=== PATIENT | female | born 1980 | race Caucasian/White ===

== ENCOUNTER 2019-10-30 14:33 | Outpatient (CLI) | payer OTHER, SELFPAY ==
[2019-10-30 14:48] LABS: Basophils Absolute Auto 0.1 K/mm3 (0.0-0.1); Basophils Percent Auto 0.7 % (0.2-1.2); Eosinophils Absolute Auto 0.3 K/mm3 (0-0.3); Eosinophils Percent Auto 3.4 % (0-4.4); Hematocrit 39.5 % (37.0-47.0); Hemoglobin 13.1 g/dL (12.0-15.0); Immature Granulocyte Absolute 0.02 K/mm3 (0.00-0.031); Immature Granulocyte Percent A 0.3 % (0-0.5); Lymphocytes Absolute Auto 2.14 K/mm3 (0.9-3.2); Lymphocytes Percent Auto 28.9 % (18.3-44.2); Mean Corpuscular HGB Conc 33.2 g/dl (32-36); Mean Corpuscular Hemoglobin 31.9 pg (26-34); Mean Corpuscular Volume 96.1 fl (80-100); Monocytes Absolute Auto 0.9 K/mm3 (0.1-0.6); Monocytes Percent Auto 12.7 % (2.6-8.5); Platelet Count Result 360 k/mm3 (150-375); Red Blood Count 4.11 M/mm3 (4.2-5.4); Red Cell Distribution Width 12.1 % (11.5-14.5); White Blood Count 7.4 K/mm3 (4.5-10.0)
[2019-10-30 14:53] LABS: Blood Urea Nitrogen 7 mg/dL (8-26); Carbon Dioxide 26 mmol/L (22-30); Chloride 103 mmol/L (98-109); Estimated Glomerular Filt Rate > 60; Glucose 81 mg/dL (70-105); Sodium 142 mmol/L (138-146)
[2019-10-30 17:25] LABS: Alanine Aminotransferase 36 U/L (4-35); Albumin Level 4.2 g/dL (3.5-5.1); Alkaline Phosphatase 59 U/L (38-126); Aspartate Amino Transferase 34 U/L (14-36); Bilirubin,Total 0.4 mg/dL (0.2-1.3); Blood Urea Nitrogen 8 mg/dL (7-17); Calcium 9.3 mg/dL (8.4-10.2); Carbon Dioxide 26 mmol/L (22-30); Chloride 105 mmol/L (98-107); Estimated Glomerular Filt Rate > 60; Glucose 87 mg/dL (65-105); Potassium 4.3 mmol/L (3.4-5.0); Sodium 138 mmol/L (137-145)
== END 2019-10-30 14:34 | disposition home or self-care (01) ==
PROVIDERS: Visit Provider Internal Medicine Hematology & Oncology
DX: Z86.718 Personal history of other venous thrombosis and embolism (principal)
CPT/HCPCS: 36415; 80048; 80053; 85025

== ENCOUNTER 2020-05-02 14:10 | Outpatient (CLI) | payer OTHER, SELFPAY ==
[2020-05-02 14:27] LABS: Basophils Absolute Auto 0.1 K/mm3 (0.0-0.1); Basophils Percent Auto 0.7 % (0.2-1.2); Eosinophils Absolute Auto 0.2 K/mm3 (0-0.3); Eosinophils Percent Auto 3.2 % (0-4.4); Hematocrit 39.1 % (37.0-47.0); Immature Granulocyte Absolute 0.01 K/mm3 (0.00-0.031); Immature Granulocyte Percent A 0.1 % (0-0.5); Lymphocytes Percent Auto 33.9 % (18.3-44.2); Mean Corpuscular HGB Conc 33.2 g/dl (32-36); Mean Corpuscular Hemoglobin 32.1 pg (26-34); Mean Corpuscular Volume 96.5 fl (80-100); Mean Platelet Volume 8.9 fl (7.4-10.4); Monocytes Absolute Auto 0.8 K/mm3 (0.1-0.6); Monocytes Percent Auto 11.6 % (2.6-8.5); Neutrophils Absolute Auto 3.6 K/mm3 (1.3-6.7); Neutrophils Percent Auto 50.5 % (45.5-73.1); Platelet Count Result 406 k/mm3 (150-375); Red Blood Count 4.05 M/mm3 (4.2-5.4); Red Cell Distribution Width 12.1 % (11.5-14.5); White Blood Count 7.1 K/mm3 (4.5-10.0)
[2020-05-02 14:30] LABS: Blood Urea Nitrogen 8 mg/dL (8-26); Carbon Dioxide 28 mmol/L (22-30); Chloride 104 mmol/L (98-109); Estimated Glomerular Filt Rate > 60; Glucose 102 mg/dL (70-105); Potassium 3.9 mmol/L (3.5-4.9); Sodium 142 mmol/L (138-146)
[2020-05-02 16:38] LABS: Alanine Aminotransferase 30 U/L (4-35); Alkaline Phosphatase 53 U/L (38-126); Anion Gap 6 mmol/L (8-16); Aspartate Amino Transferase 29 U/L (14-36); Bilirubin,Total 0.3 mg/dL (0.2-1.3); Blood Urea Nitrogen 9 mg/dL (7-17); Calcium 9.1 mg/dL (8.4-10.2); Carbon Dioxide 27 mmol/L (22-30); Chloride 107 mmol/L (98-107); Estimated Glomerular Filt Rate > 60; Glucose 101 mg/dL (65-105); Potassium 4.3 mmol/L (3.4-5.0); Sodium 140 mmol/L (137-145)
== END 2020-05-02 14:11 | disposition home or self-care (01) ==
PROVIDERS: Visit Provider Internal Medicine Hematology & Oncology
DX: Z86.718 Personal history of other venous thrombosis and embolism (principal)
CPT/HCPCS: 36415; 80048; 80053; 85025

== ENCOUNTER 2021-04-29 09:41 | Outpatient (CLI) | payer BC, SELFPAY ==
[2021-04-29 09:59] LABS: Basophils Percent Auto 0.6 % (0.2-1.2); Eosinophils Absolute Auto 0.3 K/mm3 (0-0.3); Eosinophils Percent Auto 3.6 % (0-4.4); Hematocrit 43.9 % (37.0-47.0); Hemoglobin 14.2 g/dL (12.0-15.0); Immature Granulocyte Absolute 0.02 K/mm3 (0.00-0.031); Immature Granulocyte Percent A 0.3 % (0-0.5); Lymphocytes Absolute Auto 2.16 K/mm3 (0.9-3.2); Lymphocytes Percent Auto 29.8 % (18.3-44.2); Mean Corpuscular HGB Conc 32.3 g/dl (32-36); Mean Corpuscular Hemoglobin 32.3 pg (26-34); Mean Corpuscular Volume 99.8 fl (80-100); Mean Platelet Volume 8.9 fl (7.4-10.4); Monocytes Absolute Auto 0.8 K/mm3 (0.1-0.6); Monocytes Percent Auto 10.8 % (2.6-8.5); Neutrophils Percent Auto 54.9 % (45.5-73.1); Platelet Count Result 386 k/mm3 (150-375); Red Cell Distribution Width 12.4 % (11.5-14.5); White Blood Count 7.2 K/mm3 (4.5-10.0)
[2021-04-29 10:03] LABS: Blood Urea Nitrogen 9 mg/dL (8-26); Carbon Dioxide 27 mmol/L (22-30); Chloride 102 mmol/L (98-109); Estimated Glomerular Filt Rate > 60; Glucose 76 mg/dL (70-105); Potassium 4.2 mmol/L (3.5-4.9); Sodium 141 mmol/L (138-146)
[2021-04-29 11:56] LABS: Alanine Aminotransferase 63 U/L (4-35); Albumin Level 4.4 g/dL (3.5-5.1); Alkaline Phosphatase 77 U/L (38-126); Anion Gap 10 mmol/L (8-16); Aspartate Amino Transferase 61 U/L (14-36); Bilirubin,Total 0.6 mg/dL (0.2-1.3); Blood Urea Nitrogen 9 mg/dL (7-17); Calcium 9.4 mg/dL (8.4-10.2); Carbon Dioxide 26 mmol/L (22-30); Chloride 103 mmol/L (98-107); Estimated Glomerular Filt Rate > 60; Glucose 78 mg/dL (65-110); Potassium 4.2 mmol/L (3.4-5.0); Sodium 139 mmol/L (137-145)
== END 2021-04-29 09:42 | disposition home or self-care (01) ==
PROVIDERS: Visit Provider Internal Medicine Hematology & Oncology
DX: Z86.718 Personal history of other venous thrombosis and embolism (principal)
CPT/HCPCS: 36415; 80053; 85025

== ENCOUNTER 2021-09-05 16:00 | Emergency (ER) | payer BC, SELFPAY ==
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
[2021-09-05 16:10] VITALS: BP 138/95; PULSE 67; RESP 16; TEMP 36.4; O2SAT 100
== END 2021-09-05 16:45 | disposition short-term general hospital (02) ==
LOC: EXPTROY 16:03
PROVIDERS: Emergency Provider Registered Nurse
DX: R10.31 Right lower quadrant pain (principal); K50.90 Crohn's disease, unspecified, without complications; M19.90 Unspecified osteoarthritis, unspecified site; D68.51 Activated protein C resistance
CPT/HCPCS: 99212; G0463

== ENCOUNTER 2021-09-05 16:58 | Emergency (ER) | payer BC, SELFPAY ==
--- NOTE | ~2021-09-05 | CT_ITS ---
EXAMINATION: CT abdomen pelvis w con DATE: 09/05/2021 20:48 INDICATION: Right lower quadrant abdominal pain. TECHNIQUE: Computed tomography (CT) of the abdomen and pelvis was performed with 75 mL Omnipaque 300 intravenous contrast. Automated exposure control and iterative reconstruction technique were employed . The dose-length product was 420.95 mGy-cm. COMPARISON: None. FINDINGS: The visualized portions of the lung bases demonstrate mild atelectasis. No pleural effusion . The heart size is normal. No pericardial effusion. The liver, gallbladder, pancreas, adrenal glands , and kidneys are normal. The spleen is small, likely from old injury. There are changes of right hem icolectomy. There are no dilated loops of bowel. There are no pathologically enlarged lymph nodes. Th ere is no free intraperitoneal fluid. There is internal fixation of left femur. IMPRESSION: 1. No etiology for the patient's symptoms. Reviewed, dictated and finalized at location A.
[2021-09-05 17:00] VITALS: BP 160/102; PULSE 63; RESP 20; TEMP 36.5; O2SAT 100
[2021-09-05 17:22] LABS: Basophils Absolute Auto 0.1 K/mm3 (0.0-0.1); Basophils Percent Auto 0.6 % (0.2-1.2); Eosinophils Absolute Auto 0.2 K/mm3 (0-0.3); Eosinophils Percent Auto 2.8 % (0-4.4); Hematocrit 43.3 % (37.0-47.0); Hemoglobin 14.2 g/dL (12.0-15.0); Immature Granulocyte Absolute 0.01 K/mm3 (0.00-0.031); Immature Granulocyte Percent A 0.1 % (0-0.5); Lymphocytes Absolute Auto 2.39 K/mm3 (0.9-3.2); Lymphocytes Percent Auto 28.8 % (18.3-44.2); Mean Corpuscular HGB Conc 32.8 g/dl (32-36); Mean Corpuscular Hemoglobin 32.2 pg (26-34); Mean Corpuscular Volume 98.2 fl (80-100); Mean Platelet Volume 9.2 fl (7.4-10.4); Monocytes Percent Auto 12.3 % (2.6-8.5); Neutrophils Absolute Auto 4.6 K/mm3 (1.3-6.7); Neutrophils Percent Auto 55.4 % (45.5-73.1); Platelet Count Result 412 k/mm3 (150-375); Red Blood Count 4.41 M/mm3 (4.2-5.4); Red Cell Distribution Width 12.3 % (11.5-14.5); White Blood Count 8.3 K/mm3 (4.5-10.0)
[2021-09-05 17:28] LABS: Alanine Aminotransferase 39 U/L (6-35); Alkaline Phosphatase 75 U/L (38-126); Anion Gap 8 mmol/L (8-16); Aspartate Amino Transferase 40 U/L (14-36); Bilirubin,Total 0.1 mg/dL (0.2-1.3); Blood Urea Nitrogen 13 mg/dL (7-17); Calcium 9.4 mg/dL (8.4-10.2); Carbon Dioxide 28 mmol/L (22-30); Chloride 102 mmol/L (98-107); Estimated CRCL calculation 81 ml/min; Estimated Glomerular Filt Rate > 60; Glucose 100 mg/dL (65-110); Lipase 163 U/L (23-300); Potassium 4.2 mmol/L (3.4-5.0); Sodium 138 mmol/L (137-145)
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
[2021-09-05] MEDS: SODIUM CHLORIDE 0.9% IV 1,000 ML 999 ML IV CONT (20:21)
[2021-09-05 20:32] LABS: Add Urine Microscopic? YES; Appearance Urine Clear (Clear); Bilirubin Urine Negative (Negative); Blood Urine 2+ (Negative); Color Urine Yellow (Yellow); Glucose Urine UA Negative (Negative); Ketones Urine 2+ mg/dL (Negative); Leukocyte Esterase Ur Negative LEU/UL (Negative); Nitrate Urine Negative (Negative); Protein Urine Negative (Negative); Specific Grav Ur 1.025 (1.001-1.035); Urobilinogen Urine 0.2 mg/dL (<2.0); pH Urine 5.5 (5.0-9.0)
[2021-09-05 20:38] LABS: Bacteria Urine Trace /hpf; Mucus Urine Rare /lpf; Squamous Epithelial Cell Urine Occasional /hpf (Few); WBC Urine 0-3 /hpf
[2021-09-05 21:03] VITALS: BP 132/92; PULSE 64; TEMP 36.9; O2SAT 100
[2021-09-05 22:33] LABS: Lactic Acid Reflex 0.7 mmol/L (0.7-2.0)
[2021-09-05 23:51] VITALS: BP 136/99; PULSE 60; RESP 18; O2SAT 100
== END 2021-09-05 23:53 | disposition home or self-care (01) ==
PROVIDERS: Emergency Medicine; Physician Assistant; Emergency Provider Emergency Medicine; PCP Internal Medicine
DX: K50.90 Crohn's disease, unspecified, without complications (principal); D68.51 Activated protein C resistance; Z79.01 Long term (current) use of anticoagulants; M19.90 Unspecified osteoarthritis, unspecified site; Z90.49 Acquired absence of other specified parts of digestive tract; Z90.81 Acquired absence of spleen
CPT/HCPCS: 36415; 74177; 80053; 81001; 81025; 83605; 83690; 85025; 96365; 99284; J0131; J7030; Q9967

== ENCOUNTER 2022-04-28 08:46 | Outpatient (CLI) | payer BC, SELFPAY ==
[2022-04-28 08:57] LABS: Basophils Absolute Auto 0.1 K/mm3 (0.0-0.1); Basophils Percent Auto 0.7 % (0.2-1.2); Eosinophils Absolute Auto 0.3 K/mm3 (0-0.3); Eosinophils Percent Auto 4.5 % (0-4.4); Hematocrit 41.5 % (37.0-47.0); Immature Granulocyte Absolute 0.02 K/mm3 (0.00-0.031); Immature Granulocyte Percent A 0.3 % (0-0.5); Lymphocytes Percent Auto 29.7 % (18.3-44.2); Mean Corpuscular HGB Conc 33.7 g/dl (32-36); Mean Corpuscular Hemoglobin 32.6 pg (26-34); Mean Corpuscular Volume 96.7 fl (80-100); Mean Platelet Volume 8.5 fl (7.4-10.4); Monocytes Absolute Auto 0.8 K/mm3 (0.1-0.6); Monocytes Percent Auto 10.1 % (2.6-8.5); Neutrophils Absolute Auto 4.1 K/mm3 (1.3-6.7); Neutrophils Percent Auto 54.7 % (45.5-73.1); Platelet Count Result 449 k/mm3 (150-375); Red Blood Count 4.29 M/mm3 (4.2-5.4); Red Cell Distribution Width 11.9 % (11.5-14.5); White Blood Count 7.4 K/mm3 (4.5-10.0)
[2022-04-28 09:04] LABS: Blood Urea Nitrogen 8 mg/dL (8-26); Carbon Dioxide 29 mmol/L (22-30); Chloride 102 mmol/L (98-109); Estimated Glomerular Filt Rate > 60; Glucose 90 mg/dL (70-105); Sodium 140 mmol/L (138-146)
[2022-04-28 12:22] LABS: Alanine Aminotransferase 69 U/L (6-35); Albumin Level 4.5 g/dL (3.5-5.1); Alkaline Phosphatase 65 U/L (38-126); Anion Gap 7 mmol/L (8-16); Aspartate Amino Transferase 39 U/L (14-36); Bilirubin,Total 0.5 mg/dL (0.2-1.3); Blood Urea Nitrogen 8 mg/dL (7-17); Calcium 9.2 mg/dL (8.4-10.2); Carbon Dioxide 27 mmol/L (22-30); Chloride 101 mmol/L (98-107); Estimated Glomerular Filt Rate > 60; Glucose 87 mg/dL (65-110); Sodium 135 mmol/L (137-145)
== END 2022-04-28 08:47 | disposition home or self-care (01) ==
LOC: ANHLAB 08:48
PROVIDERS: Visit Provider Internal Medicine Hematology & Oncology
DX: Z86.718 Personal history of other venous thrombosis and embolism (principal); D68.59 Other primary thrombophilia; R53.83 Other fatigue
CPT/HCPCS: 36415; 80047; 80053; 84443; 85025

== ENCOUNTER 2022-06-26 07:14 | Outpatient (CLI) | payer BC, SELFPAY ==
--- NOTE | ~2022-06-26 | MM_ITS ---
EXAMINATION: MM screening ti BI w ruth HISTORY: Screening mammogram TECHNIQUE: Craniocaudal and mediolateral oblique 3-D tomosynthesis images were obtained and synthetic 2-D images were generated. Bilateral rotated lateral CC views. CAD analysis was submitted and interp reted. COMPARISON: No prior mammogram is available for comparison at this institution. BREAST PARENCHYMAL COMPOSITION: There are scattered areas of fibroglandular density. FINDINGS: There is no evidence of suspicious mass, calcification, or architectural distortion to sugg est malignancy in either breast. There has been no suspicious interval change. IMPRESSION: 1. No mammographic evidence of malignancy. 2. Recommend routine screening mammography in one year. BI-RADS Category 1: Negative Reviewed, dictated and finalized at location B. POLISHER
== END 2022-06-26 07:15 | disposition home or self-care (01) ==
PROVIDERS: PCP Internal Medicine Hematology & Oncology; Visit Provider Internal Medicine Hematology & Oncology
DX: Z12.31 Encounter for screening mammogram for malignant neoplasm of breast (principal)
CPT/HCPCS: 77063; 77067

== ENCOUNTER 2023-04-28 10:05 | Outpatient (CLI) | payer BC, SELFPAY ==
[2023-04-28 10:17] LABS: Basophils Absolute Auto 0.1 K/mm3 (0.0-0.1); Basophils Percent Auto 0.8 % (0.2-1.2); Eosinophils Absolute Auto 0.3 K/mm3 (0-0.3); Eosinophils Percent Auto 5.4 % (0-4.4); Hematocrit 43.1 % (37.0-47.0); Hemoglobin 14.7 g/dL (12.0-15.0); Immature Granulocyte Absolute 0.01 K/mm3 (0.00-0.031); Immature Granulocyte Percent A 0.2 % (0-0.5); Lymphocytes Absolute Auto 1.89 K/mm3 (0.9-3.2); Lymphocytes Percent Auto 31.9 % (18.3-44.2); Mean Corpuscular HGB Conc 34.1 g/dl (32-36); Mean Corpuscular Volume 96.6 fl (80-100); Mean Platelet Volume 8.5 fl (7.4-10.4); Monocytes Absolute Auto 0.7 K/mm3 (0.1-0.6); Monocytes Percent Auto 12.1 % (2.6-8.5); Neutrophils Absolute Auto 2.9 K/mm3 (1.3-6.7); Neutrophils Percent Auto 49.6 % (45.5-73.1); Platelet Count Result 438 k/mm3 (150-375); Red Blood Count 4.46 M/mm3 (4.2-5.4); Red Cell Distribution Width 12.2 % (11.5-14.5); White Blood Count 5.9 K/mm3 (4.5-10.0)
[2023-04-28 10:23] LABS: Blood Urea Nitrogen 16 mg/dL (8-26); Carbon Dioxide 26 mmol/L (22-30); Chloride 103 mmol/L (98-109); Estimated Glomerular Filt Rate > 60; Glucose 71 mg/dL (70-105); Ionized Calcium (POC) 1.23 mmol/L (1.11-1.31); Potassium 4.5 mmol/L (3.5-4.9); Sodium 142 mmol/L (138-146)
[2023-04-28 12:44] LABS: Alanine Aminotransferase 42 U/L (6-35); Albumin Level 4.5 g/dL (3.5-5.1); Alkaline Phosphatase 59 U/L (38-126); Anion Gap 9 mmol/L (8-16); Aspartate Amino Transferase 35 U/L (14-36); Bilirubin,Total 0.6 mg/dL (0.2-1.3); Blood Urea Nitrogen 15 mg/dL (7-17); Calcium 9.2 mg/dL (8.4-10.2); Carbon Dioxide 27 mmol/L (22-30); Chloride 104 mmol/L (98-107); Estimated Glomerular Filt Rate > 60; Glucose 70 mg/dL (65-110); Potassium 4.6 mmol/L (3.4-5.0); Sodium 140 mmol/L (137-145)
== END 2023-04-28 10:06 | disposition home or self-care (01) ==
LOC: ANHLAB 10:07
PROVIDERS: PCP Internal Medicine Hematology & Oncology; Visit Provider Internal Medicine Hematology & Oncology
DX: D68.59 Other primary thrombophilia (principal)
CPT/HCPCS: 36415; 80047; 80053; 85025

== ENCOUNTER 2023-05-14 07:35 | Outpatient (CLI) | payer BC, SELFPAY ==
--- NOTE | ~2023-05-14 | MR_ITS ---
MRI of the lumbar spine Clinical History: Back pain Technique: Axial T2-weighted images, and sagittal T1-weighted, T2-weighted, and T2 fat-sat images wer e acquired. Following intravenous administration of 12 cc MultiHance gadolinium, T1-weighted fat-sat imaging was performed in the axial and sagittal planes. Findings: There is no fracture or subluxation of the lumbar spine. Vertebral bodies maintain normal h eight and alignment. No suspicious bone marrow signal abnormality seen. No disc bulge or herniation seen at any lumbar level. There is moderate facet arthropathy at L4-L5, m ild facet joint degenerative change at the remaining lumbar levels. No spinal canal stenosis seen at any level. There is moderate left neural foraminal narrowing at L4-L5, with minimal right neural fora rm narrowing at this level. Remaining neural foramina are preserved throughout the lumbar spine. Paravertebral soft tissues are unremarkable. No abnormal postcontrast enhancement identified. Impression: Mild degenerative spondylosis at L4-L5, as detailed above. Reviewed, dictated and finalized at location . LAYER Impression: Mild degenerative spondylosis at L4-L5, as detailed above.
== END 2023-05-14 07:36 | disposition home or self-care (01) ==
LOC: ANHIMG 07:39
PROVIDERS: PCP Internal Medicine Hematology & Oncology; Visit Provider Internal Medicine Hematology & Oncology
DX: M47.896 Other spondylosis, lumbar region (principal)
CPT/HCPCS: 72158; A9577

== ENCOUNTER 2023-09-20 07:56 | Outpatient (CLI) | payer BC, SELFPAY ==
--- NOTE | ~2023-09-20 | MM_ITS ---
EXAMINATION: MM screening ti BI w ruth HISTORY: Screening TECHNIQUE: Craniocaudal and mediolateral oblique 3-D tomosynthesis images were obtained and synthetic 2-D images were generated. CAD analysis was submitted and interpreted. COMPARISON: 06/26/2022 BREAST PARENCHYMAL COMPOSITION: Not dense: There are scattered areas of fibroglandular density. FINDINGS: There are developing asymmetries in the upper outer quadrant of the left breast. The right breast is stable without evidence for malignancy. IMPRESSION: 1. Developing left breast asymmetries. 2. Additional mammographic views and possible breast ultrasound are recommended. BI-RADS Category 0: Incomplete: Needs additional imaging evaluation. Reviewed, dictated and finalized at location B. IMPRESSION: 1. Developing left breast asymmetries. 2. Additional mammographic views and possible breast ultrasound are recommended . BI-RADS Category 0: Incomplete: Needs additional imaging evaluation.
== END 2023-09-20 07:57 | disposition home or self-care (01) ==
LOC: ANHIMG 07:58
PROVIDERS: PCP Internal Medicine Hematology & Oncology; Visit Provider Internal Medicine Hematology & Oncology
DX: Z12.31 Encounter for screening mammogram for malignant neoplasm of breast (principal); N64.89 Other specified disorders of breast
CPT/HCPCS: 77063; 77067

== ENCOUNTER 2023-10-05 13:06 | Outpatient (CLI) | payer BC, SELFPAY ==
--- NOTE | ~2023-10-05 | MMUS_ITS ---
EXAMINATION: MM diagnostic ti LT w ruth, US breast LT limited HISTORY: Follow-up left breast asymmetry TECHNIQUE: Additional 3-D tomosynthesis images of the left breast were performed and synthetic 2-D im ages were generated. CAD analysis was submitted and interpreted. High resolution Limited left breast ultrasound was performed. COMPARISON: Comparison to multiple prior studies sequentially, with oldest reviewed study dated 05/2020. BREAST PARENCHYMAL COMPOSITION: Not dense: There are scattered areas of fibroglandular density. FINDINGS: MAMMOGRAPHIC FINDINGS: The left breast is stable. No new masses, calcifications or architectural distortion in the left sal[address] st to suggest malignancy. ULTRASOUND: Limited left breast ultrasound: Normal heterogeneous echotexture without focal solid or cystic mass. IMPRESSION: 1. No evidence for malignancy in the left breast. 2. Routine yearly screening mammogram and regular clinical breast examination are recommended. BI-RADS Category 1: Negative Reviewed, dictated and finalized at location B. IMPRESSION: 1. No evidence for malignancy in the left breast. 2. Routine yearly screening mammogram and regular clinical breast examination a re recommended. BI-RADS Category 1: Negative
== END 2023-10-05 13:07 | disposition home or self-care (01) ==
LOC: ANHIMG 13:08
PROVIDERS: PCP Internal Medicine Hematology & Oncology; Visit Provider Internal Medicine Hematology & Oncology
DX: R92.8 Other abnormal and inconclusive findings on diagnostic imaging of breast (principal)
CPT/HCPCS: 76642; 77061; 77065; G0279

== ENCOUNTER 2024-07-14 09:13 | Outpatient (CLI) | payer BC, SELFPAY ==
[2024-07-14 09:31] LABS: Basophils Percent Auto 0.7 % (0.2-1.2); Eosinophils Absolute Auto 0.3 K/mm3 (0-0.3); Eosinophils Percent Auto 5.1 % (0-4.4); Hematocrit 41.6 % (37.0-47.0); Hemoglobin 13.9 g/dL (12.0-15.0); Immature Granulocyte Absolute 0.01 K/mm3 (0.00-0.031); Immature Granulocyte Percent A 0.2 % (0-0.5); Lymphocytes Absolute Auto 2.08 K/mm3 (0.9-3.2); Lymphocytes Percent Auto 35.2 % (18.3-44.2); Mean Corpuscular HGB Conc 33.4 g/dl (32-36); Mean Corpuscular Hemoglobin 32.2 pg (26-34); Mean Corpuscular Volume 96.3 fl (80-100); Mean Platelet Volume 8.5 fl (7.4-10.4); Monocytes Absolute Auto 0.8 K/mm3 (0.1-0.6); Monocytes Percent Auto 12.7 % (2.6-8.5); Neutrophils Absolute Auto 2.7 K/mm3 (1.3-6.7); Neutrophils Percent Auto 46.1 % (45.5-73.1); Platelet Count Result 397 k/mm3 (150-375); Red Blood Count 4.32 M/mm3 (4.2-5.4); Red Cell Distribution Width 12.2 % (11.5-14.5); White Blood Count 5.9 K/mm3 (4.5-10.0)
[2024-07-14 09:33] LABS: Blood Urea Nitrogen 11 mg/dL (8-26); Carbon Dioxide 23 mmol/L (22-30); Chloride 107 mmol/L (98-109); Estimated Glomerular Filt Rate > 60; Glucose 91 mg/dL (70-105); Ionized Calcium (POC) 1.16 mmol/L (1.11-1.31); Potassium 4.7 mmol/L (3.5-4.9); Sodium 140 mmol/L (138-146)
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
--- OUTSIDE RECORDS SUMMARY | 2024-07-14 09:44 | XMS_ITS | Clinical Summary ---
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 least 8 hours. Fasting glucose between 100 mg/dl to 125 mg/dl is diagnostic of prediabetes. In a patient with classic symptoms of hyperglycemia or hyperglycemic crisis, a random glucose >/= 200 mg/dl is diagnostic for diabetes. In the absence of unequivocal hyperglycemia, results should be confirmed by repeat testing. The classification and Diagnosis of Diabetes Diabetes Care 2021; 46: S19-S40. Current interpretive data was last revised 2022. Calcium 9.3 8.5 - 10.3 mg/dL CERNER BJWCH Bilirubin, total 0.3 0.1 - 1.2 mg/dL CERNER BJW[facility] Protein, pl 7.4 6.5 - 8.5 g/dL CERNER BJW[facility] Albumin 3.9 3.5 - 5.0 g/dL CERNER BJW[facility] Alk phos 65 40 - 130 Units/L CERNER B[facility] ALT 31 7 - 45 Units/L CERNER [facility] AST 23 10 - 45 Units/L CERNER BJWCH Blood 05/22/2024 10:1 8 AM MOLD STAMPER 05/22/2024 10:42 AM MOLD STAMPER Lisa Nieto NP LAB BLOOD ORDERABLES Fin al Result CINDY NEVAREZ [id number] [facility]. Department [place] [address] * Liver Elastography w/o Imaging [facility]/I&R -[facility] (All Locations) (05/22/2024 9:45 AMCST) Anatomical Region Laterality Modality Other Lisa Nieto NP GI PROCEDURE ORDERABLES Final Result * Colonoscopy (02/11/2024 8:17 AM CDT) Anatomical Region Laterality Modality Other Narrative Procedure Note Rey Humphrey MD - 02/11/2024 8:17 AM CDT ENDOSCOPY LAB Patient Name: Kelsey Ramos Procedure Date: 02/11/2024 8:17 AM Date of : 1980 Admit Type: Outpatient Age: 43 Gender: Female Attending MD: Rey Humphrey M.D. Room: [facility] ENDOSCOPY ROOM 02 Note Status: Finalized Procedure: Colonoscopy Indications: Disease activity assessment of Crohn's disease ofthe small bowel and colon Providers: Rey Humphrey M.D., Libra Galdamez M.D.(Fellow) Referring MD: Rey Humphrey M.D. Medicines: See the Anesthesia note for documentation of the administered medications Complications: No immediate complications. Estimated Blood Loss: Estimated blood loss was minimal. Procedure: Pre-Anesthesia Assessment: - After reviewing the risks and benefits, thepatient was deemed in satisfactory condition to undergo the procedure. The benefits, risks and alternatives of theprocedure and sedation were discussed and informed consentwas obtained. All questions were answered. Please referto the signed informed consent document in the medical record. The scope was passed under direct vision.The [id number] was introduced through the anusand advanced to the terminal ileum. The colonoscopy was performed without difficulty. The patient tolerated the procedure well. The quality of the bowel preparation was excellent. Sonia-terminal ileum andIC anastomosis were photographed. Findings: The perianal and digital rectal examinations were normal. The Simple Endoscopic Score for Crohn's Disease was determined basedon the endoscopic appearance of the mucosa in the following segments: - Ileum: Findings include no ulcers present, no ulcerated surfaces,no affected surfaces and no narrowings. Segment score: 0. - Right Colon: Findings include no ulcers present, no ulcerated surfaces, no affected surfaces and no narrowings. Segment score: 0. - Transverse Colon: Findings include no ulcers present, no ulcerated surfaces, no affected surfaces and no narrowings. Segment score: 0. - Left Colon: Findings include no ulcers present, no ulceratedsurfaces, no affected surfaces and no narrowings. Segment score: 0. - Rectum: Findings include no ulcers present, no ulcerated surfaces,no affected surfaces and no narrowings. Segment score: 0. - Total SES-CD aggregate score: 0. Biopsies were taken with a cold forceps for histology. There was evidence of a prior end-to-side ileo-colonic anastomosis in the proximal transverse colon. This was patent and was characterizedby healthy appearing mucosa. The anastomosis was traversed. This was biopsied with a cold forceps for histology. The sonia-terminal ileum appeared normal. The retroflexed view of the distal rectum and anal verge was normaland showed no anal or rectal abnormalities. Impression: - Simple Endoscopic Score for Crohn's Disease: 0, mucosal inflammatory changes secondary to Crohn's disease, in remission. Biopsied. - Patent end-to-side ileo-colonic anastomosis, characterized by healthy appearing mucosa.Biopsied. - The distal rectum and anal verge are normal on retroflexion view. Recommendation: - Discharge patient to home (ambulatory). - Resume previous diet. - Continue present medications. - Repeat colonoscopy in 3 years for surveillance. - Continue with humira every 2 weeks. - Return to my office as previously scheduled. - Contact Information: During normal business hours - Please call theNurse Coordinator: [phone]. After hours, evening, nights, weekends and holidays- Please call the hospital lumber kiln operator at and ask for the GI fellow brand activation manager. Electronically signed by Rey Humphrey MD Rey Humphrey M.D. 02/11/2024 8:46:23 AM Libra Galdamez M.D. Number of Addenda: 0 Note Initiated On: 02/11/2024 8:17 AM us Rey Humphrey MD ENDOSCOPY PROCEDURES Final Resul t * Diagnostic Mammogram Bilateral W Jose (06/25/2021 8:38 AM MOLD STAMPER) Anatomical Region Laterality Modality Breast Bilateral Mammography 06/25/2021 9:19 AM MOLD STAMPER Impressions 06/25/2021 9:39 AM MOLD STAMPER 1. The asymmetry at far posterior depth on MLO view within the LEFT breast could represent a benign lymph node and is unchanged over 2 years and benign. Annual screening mammogram is recommended. OVERALL FINAL ASSESSMENT: BI-RADS Category 2: Benign. RECOMMENDATION: Annual screening mammography is recommended. Dictated by: Arely Doe MD The radiology attending physician has personally reviewed this study, and had reviewed and/or edited this written report and agrees with it. Electronically signed by: Ludmila Mancini M.D. Narrative 06/25/2021 9:39 AM MOLD STAMPER EXAMINATION: BILATERAL DIGITAL DIAGNOSTIC MAMMOGRAM INCLUDING CAD AND BILATERAL DIGITAL BREAST TOMOSYNTHESIS HISTORY: 41-year-old female presenting to establish two-year stability of previous BI-RADS 3 finding within the LEFT breast on MLO view only, initially detected on baseline screening mammogram 06/07/2019. She is also due for bilateral breast imaging. COMPARISON: Diagnostic mammogram 06/18/2020, 12/21/2019, 06/20/2019, and screening mammogram 06/07/2019 TECHNIQUE: Full field digital mammographic views of BOTH breasts were performed, including computer aided detection (CAD) and BILATERAL digital breast tomosynthesis (DBT). BREAST PARENCHYMAL COMPOSITION: The breasts are heterogenously dense, which may obscure small masses. MAMMOGRAM FINDINGS: The persistent 9 mm asymmetry within the upper LEFT breast far posterior depth on MLO view only overlying the pectoralis muscle, which is not seen on exaggerated craniocaudal view, is unchanged from MLO 06/20/2019. No new mass, distortion, or suspicious microcalcification within either breast. Procedure Note Ludmila Mancini MD - 06/25/2021 EXAMINATION: BILATERAL DIGITAL DIAGNOSTIC MAMMOGRAM INCLUDING CAD AND BILATERAL DIGITAL BREAST TOMOSYNTHESIS HISTORY: 41-year-old female presenting to establish two-year stability of previous BI-RADS 3 finding within the LEFT breast on MLO view only, initially detected on baseline screening mammogram 06/07/2019. She is also due for bilateral breast imaging. COMPARISON: Diagnostic mammogram 06/18/2020, 12/21/2019, 06/20/2019, and screening mammogram 06/07/2019 TECHNIQUE: Full field digital mammographic views of BOTH breasts were performed, including computer aided detection (CAD) and BILATERAL digital breast tomosynthesis (DBT). BREAST PARENCHYMAL COMPOSITION: The breasts are heterogenously dense, which may obscure small masses. MAMMOGRAM FINDINGS: The persistent 9 mm asymmetry within the upper LEFT breast far posterior depth on MLO view only overlying the pectoralis muscle, which is not seen on exaggerated craniocaudal view, is unchanged from MLO 06/20/2019. No new mass, distortion, or suspicious microcalcification within either breast. IMPRESSION: 1. The asymmetry at far posterior depth on MLO view within the LEFT breast could represent a benign lymph node and is unchanged over 2 years and benign. Annual screening mammogram is recommended. OVERALL FINAL ASSESSMENT: BI-RADS Category 2: Benign. RECOMMENDATION: Annual screening mammography is recommended. Dictated by: Arely Doe MD The radiology attending physician has personally reviewed this study, and had reviewed and/or edited this written report and agrees with it. Electronically signed by: Ludmila Mancini M.D. Tu Florence MD IMG MAMMO PROCEDURES Final Res ult from Last 3 Months or Most Recently Relevant to Health Maintenance [place] [address] [facility] Charlie App [place]ESS [place] Advance Directives For more information, please contact: [phone] * Full Code (Latest Code Status on File) Date Activated Date Inactivated Comments 02/11/2024 7:20 AM 02/11/2024 1:42 PM * Full Code Date Activated Date Inactivated Comments 04/03/2022 7:46 AM 04/03/2022 2:24 PM * Full Code Date Activated Date Inactivated Comments 10/04/2020 7:56 AM 10/04/2020 2:13 PM * Full Code Date Activated Date Inactivated Comments 07/29/2018 12:32 PM 07/29/2018 6:57 PM Care Teams Senior Client Advisor Relationship Specialty Start Date End Date No, Physician PCP - General 11/25/23 Tu Florence MD [address] [address] Referring Physician Hematology 11/25/23
--- OUTSIDE RECORDS SUMMARY | 2024-07-14 09:44 | XMS_ITS | Referral Summary ---
Author Organization [facility] Address [address] [place] [address] Care Team Providers Care Cardroom Manager Name Role Phone No, Physician Primary Care Provider [phone] Tu Florence MD Unavailable [phone] Encounters Date Type Department Care Team Description 05/25/2024 Telephone [facility] Gastroenterology [facility] 12th [place] [address] [place] [id number] Brittany Blood, JOSHUA 05/22/2024 10:20 AM CHROME PLATER HELPER Lab [facility] [address] [place] [address] Elevated LFTs 05/22/2024 9:30 AM CHROME PLATER HELPER Procedure visit [facility] Gastroenterology [address] [place] [address] Medical Office Building [address], [address] [place] [address] Elevated LFTs 05/22/2024 9:00 AM CHROME PLATER HELPER Office Visit [facility] Gastroenterology [address] [place] [address] Medical Office [address], [address] [place] [address] Lisa Nieto NP Elevated LFTs (Primary Dx) from Last 3 Months Allergies Active Allergy Reactions Criticality Noted Date Comments Unclassified Drug Swelling,Rash Medium 11/25/2022 Fragrance Balsam of [place] Benzoyl Peroxide Reyna Mix Limonene N, N-Diphenylguanidine [...] 90 tablet 3 4 Active PNV with noxncob-ljev-DF 27 mg iron- 1 mg tabletIndications:F olate [...] 05/22/2024 Assessment & Plan (05/22/2024 10:14 AM CHROME PLATER HELPER): Patient with slightly elevated ALT of 36 [...] 05/20/2023 Assessment & Plan (05/20/2023 9:22 AM CHROME PLATER HELPER): 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 - See supervisor cloth winding as above. Dermatitis contact, eyelid 02/04/2022 Assessment & Plan (02/13/2022 9:23 AM CDT): Medrol dose pack, pepcid and zyrtec. Keep eyes cool. Scheduled to see the channel executive. Assessment & Plan (02/04/2022 11:42 AM CDT): Will send prescription for medrol dose pack to patient pharmacy. Recommend follow up with channel executive and refrain from use of the shampoo [...] months. Assessment & Plan (05/20/2023 9:21 AM CHROME PLATER HELPER): Ileocolonic CD dx in 2011 in the [...] - She is requesting to see a supervisor cloth winding to discuss diet in Crohn's and for weight loss purposes. We will refer her to Misti Leyva. - Plan for intestinal ultrasound at next visit. - RTC in 6 months. Immunizations Immunization Administration Dates Next Due Flucelvax Influenza Quad 12/30/2021 Pneumococcal Conjugate PCV 13 11/05/2016 Pneumococcal Polysaccharide PPV23 05/15/2020, Social History Tobacco Use Types Packs/Day Years [...] on file Legal Sex Female 8:47 PM CHROME PLATER HELPER Gender Identity Female 02/04/2022 7:21 AM CDT Sexual Orientation Not on file Last Filed Vital Signs Vital Sign Reading Time Taken Comments Blood Pressure 108/73 05/22/2024 9:07 AM CHROME PLATER HELPER Pulse 77 05/22/2024 9:07 AM CHROME PLATER HELPER Temperature 36.8 C (98.2 F) 05/22/2024 9:07 AM CHROME PLATER HELPER Respiratory Rate 30 02/11/2024 9:07 AM CDT Oxygen Saturation 100% 05/22/2024 9:07 AM CHROME PLATER HELPER Inhaled Oxygen Concentration - - Weight 65.9 kg (145 lb 3.2 oz) 05/22/2024 9:07 A M CHROME PLATER HELPER Height 165.1 cm (5' 5 ) 05/22/2024 9:07 AM CHROME PLATER HELPER Body Mass Index 24.16 05/22/2024 9:07 AM CHROME PLATER HELPER Plan of Treatment Not on file Medical Devices Implanted Type Area Memorial Adviser Device Identifier Shelf Expiration Date Model / Serial / Lot Sadiq- 9 Implanted:02/1999 (Quantity not on file) Other - see comments Left: Femur Procedures Procedure Name Priority Date/Time Associated Diagnosis Comments EGFR Routine 05/22/2024 10:18 AM CHROME PLATER HELPER Elevated LFTs FERRITIN Routine 05/22/2024 10:18 AM CHROME PLATER HELPER Elevated LFTs LOREN QUALITATIVE WITH REFLEX TO LOREN QUANTITATIVE Routine 05/22/2024 10:18 AM CHROME PLATER HELPER Elevated LFTs SMOOTH MUSCLE ANTIBODY, QUALITATIVE Routine 05/22/2024 10:18 AM CHROME PLATER HELPER Elevated LFTs MITOCHONDRIAL ANTIBODIES, QUALITATIVE Routine 05/22/2024 10:18 AM CHROME PLATER HELPER Elevated LFTs IRON PROFILE W/ IBC Routine 05/22/2024 1 0:18 AM CHROME PLATER HELPER Elevated LFTs CERULOPLASMIN Routine 05/22/2024 10:18 AM CHROME PLATER HELPER Elevated LFTs COMPREHENSIVE METABOLIC PANEL Routine 05/22/2024 10:18 AM CHROME PLATER HELPER Elevated LFTs [id number] Routine 05/22/2024 1 0:18 AM CHROME PLATER HELPER Elevated LFTs HEPATITIS C ANTIBODY Routine 05/22/2024 10:18 AM CHROME PLATER HELPER Elevated LFTs HEPATITIS B SURFACE ANTIGEN Routine 05/22/2024 10:18 AM CHROME PLATER HELPER Elevated LFTs HEPATITIS B SURFACE ANTIBODY (IMMUNE STATUS) Routine 05/22/2024 10:18 AM CHROME PLATER HELPER Elevated LFTs HEPATITIS B CORE ANTIBODY, TOTAL Routine 05/22/2024 10:18 AM CHROME PLATER HELPER Elevated LFTs HEPATITIS A ANTIBODY, TOTAL Routine 05/22/2024 10:18 AM CHROME PLATER HELPER Elevated LFTs HEPATITIS A ANTIBODY, IGM Routine 05/22/2024 10:18 AM CHROME PLATER HELPER Elevated LFTs LIVER ELASTOGRAPHY W/O IMAGING W/I&R Routine 05/22/2024 9:45 AM CHROME PLATER HELPER Elevated LFTs COLONOSCOPY 02/11/2024 8:17 AM CDT DIAGNOSTIC MAMMOGRAM BILATERAL W JOSE Schedule Routine, Read Routine (OP Routine) 06/25/2021 8:38 AM CHROME PLATER HELPER Follow-up exam, 3-6 months since previous exam from Last 3 Months or Most Recently Relevant to Health Maintenance Results * LOREN ab ql w/rflx to LOREN qn (05/22/2024 10:18 AM CHROME PLATER HELPER) LOREN Negative Comment: Interpretive Data Normal range for LOREN Qualitative Antibody = Negative. 1. LOREN is performed using indirect immunofluorescence against HEp-2 cells 2. LOREN titers are performed on all positive qualitative [...] last revised on 2019. Testing performed by: [facility], [address] [facility], [place]., [address] Blood 05/22/2024 10:1 8 AM CHROME PLATER HELPER 05/22/2024 1:19 PM CHROME PLATER HELPER Lisa Nieto AIR FILLER LAB BLOOD ORDERABLES Fin al Result Performing Organization Address [facility] Co de Phone Number CINDY BJWCH [address] [address] [facility] [employer] [address] * eGFR (05/22/2024 10:18 AM CHROME PLATER HELPER) eGFR >90 >=60 mL/min/1. 73 m2 Comment: [...] reviewed 2021. Blood 05/22/2024 10:1 8 AM CHROME PLATER HELPER 05/22/2024 10:42 AM CHROME PLATER HELPER Lisa Nieto AIR FILLER LAB BLOOD ORDERABLES Fin al Result Performing Organization Address [facility] Co de Phone Number CINDY BJWCH [address] [address] [employer]. Department [employer] [place] [address] * Smooth muscle antibody, qualitative (05/22/2024 10:18 AM CHROME PLATER HELPER) Anti-smooth muscle Negative Negative Comment:Testing performed by : [facility], [address] [facility], [place]., [address] Blood 05/22/2024 10:1 8 AM CHROME PLATER HELPER 05/22/2024 1:19 PM CHROME PLATER HELPER Lisa Nieto AIR FILLER LAB BLOOD ORDERABLES Fin al Result [facility] [address] [address] [facility] [place] [address] * Mitochondrial antibodies, qualitative (05/22/2024 10:18 AM CHROME PLATER HELPER) Anti-mitochond rial Negative Negative Comment:Testing performed by : [facility], [address] [place] [address]., [address] Blood 05/22/2024 10:1 8 AM CHROME PLATER HELPER 05/22/2024 1:19 PM CHROME PLATER HELPER Lisa Nieto AIR FILLER LAB BLOOD ORDERABLES Fin al Result Performing Organization Address [facility] Co de Phone Number CINDY FOSTERCH [address] [employer] [facility] [place] [address] * Iron profile w/ IBC (05/22/2024 10:18 AM CHROME PLATER HELPER) Iron 115 35 - 145 mcg/dL Comment:Testing performed by : [facility], [address] [place] [address]., [id number] TIBC 267 250 - 400 mcg/dL CINDY NEVAREZ Comment:Testing performed by : [facility], [address] [place] [address]., [address] Transferrin saturation 43 20 - 50 % CINDY NEVAREZ Comment:Testing performed by : [facility], [address] [place] [address]., [address] Blood 05/22/2024 10:1 8 AM CHROME PLATER HELPER 05/22/2024 12:28 PM CHROME PLATER HELPER Lisa Nieto AIR FILLER LAB BLOOD ORDERABLES Fin al Result CINDY FOSTERCH [address] [address] [facility] [employer] [address] * Hepatitis C antibody Blood (05/22/2024 10:18 AM CHROME PLATER HELPER) Hep C Ab Nonreactive Nonreactive Comment: Interpretive [...] last revised on 2019. Testing performed by: [facility], [facility] [facility], [place]., [address] Blood 05/22/2024 10:1 8 AM CHROME PLATER HELPER 05/22/2024 12:29 PM CHROME PLATER HELPER Lisa Nieto NP LAB MICROBIOLOGY - GENER AL ORDERABLES Final Result Performing Organization Address City/[facility]/ZIP Co de Phone Number SPD Control SystemsPHOENIX INDI[facility] CENTERCH [address] [address]. Department [place] [address] * [id number] (05/22/2024 10:18 AM CHROME PLATER HELPER) Pathologist [facility] alpha-1 antitrypsin 143 90 - 200 mg/dL Comment:Testing performed by : [facility], [address] [facility], [place]., [address] Blood 05/22/2024 10:1 8 AM CHROME PLATER HELPER 05/22/2024 1:19 PM CHROME PLATER HELPER Lisa Nieto NP LAB BLOOD ORDERABLES Fin al Result [facility] BJCH [address] [address] [address] * Hepatitis A antibody, IgM Blood (05/22/2024 10:18 AM CHROME PLATER HELPER) Hep A IgM Nonreactive Nonreactive Comment: Interpretive Data: If Hep A IgM Ab is reported as Equivocal, a new sample should be drawn in two weeks for testing. Current interpretive data was last revised on 19. Testing performed by: [facility], [facility] [facility], [place]., [address] Blood 05/22/2024 10:1 8 AM CHROME PLATER HELPER 05/22/2024 12:29 PM CHROME PLATER HELPER Lisa Nieto NP LAB MICROBIOLOGY - GENER AL ORDERABLES Final Result Performing Organization Address [facility] Co de Phone Number CINDY [facility] [address] [address] [facility] [place] [address] * Hepatitis A antibody, total Blood (05/22/2024 10:18 AM CHROME PLATER HELPER) Hep A total Nonreactive Nonreactive Comment:Testing performed by : [facility], [address] [place] [address]., [id number] Blood 05/22/2024 10:1 8 AM CHROME PLATER HELPER 05/22/2024 1:20 PM CHROME PLATER HELPER Lisa Nieto NP LAB MICROBIOLOGY - GENER AL ORDERABLES Final Result Performing Organization Address [facility] de Phone Number [facility] BJWCH [address] [address] [facility] [place] [address] * Ceruloplasmin (05/22/2024 10:18 AM CHROME PLATER HELPER) Ceruloplasmin 44.4 16.0 - 45.0 mg/dL Comment:Testing performed by : [facility], [address] [place] [address]., [address] Blood 05/22/2024 10:1 8 AM CHROME PLATER HELPER 05/22/2024 1:20 PM CHROME PLATER HELPER Lisa Nieto NP LAB BLOOD ORDERABLES Fin al Result Performing Organization Address [facility] Co de Phone Number CINDY FOSTERCH [address] [address] [address] * Hepatitis B core antibody, total Blood (05/22/2024 10:18 AM CHROME PLATER HELPER) Hep B core IgG/IgM Nonreactive Nonreactive Comment:Testing performed by : [facility], [address] [place] [address]., [address] Blood 05/22/2024 10:1 8 AM CHROME PLATER HELPER 05/22/2024 1:20 PM CHROME PLATER HELPER Lisa Nieto NP LAB MICROBIOLOGY - GENER AL ORDERABLES Final Result Performing Organization Address [facility] Co de Phone Number CINDY BJWCH [address] [address] [place] [address] * Hepatitis B surface antibody (immune status) Blood (05/22/2024 10:18 AM CHROME PLATER HELPER) HBsAb (immune status) Nonreactive Comment: This result is consistent with a lack of immunity to Hepatitis B Virus when used in the setting of routine screening. Current interpretative data was last revised on 21 Testing performed by: [facility], [address] [place]., [address] Blood 05/22/2024 10:1 8 AM CHROME PLATER HELPER 05/22/2024 1:20 PM CHROME PLATER HELPER Lisa Nieto NP LAB MICROBIOLOGY - GENER AL ORDERABLES Final Result Performing Organization Address City/[facility] Co de Phone Number CINDY BJWCH [address] [address] [facility] [place] [address] * Hepatitis B Surface Antigen Blood (05/22/2024 10:18 AM CHROME PLATER HELPER) HepBsAg Nonreactive Nonreactive Comment:Testing performed by : [facility], [address] [place] [address]., [address] Blood 05/22/2024 10:1 8 AM CHROME PLATER HELPER 05/22/2024 12:29 PM CHROME PLATER HELPER Lisa Nieto NP LAB MICROBIOLOGY - GENER AL ORDERABLES Final Result Performing Organization Address [facility] Co de Phone Number CINDY FOSTERWCH [address] [facility]. Department [place] [address] * Ferritin (05/22/2024 10:18 AM CHROME PLATER HELPER) Pathologist [facility] Ferritin 110 15 - 150 ng/mL Comment:Testing performed by : [facility], [facility] [place]., [address] Blood 05/22/2024 10:1 8 AM CHROME PLATER HELPER 05/22/2024 12:28 PM CHROME PLATER HELPER Lisa Nieto NP LAB BLOOD ORDERABLES Fin al Result Performing Organization Address [facility] Co de Phone Number CINDY FOSTERWCH [address] [facility]. Department [place] [address] * Comprehensive metabolic panel (05/22/2024 10:18 AM CHROME PLATER HELPER) Sodium 140 135 - 145 mmol/L Potassium, pl 4.1 3.3 - 4.9 mmol/L [facility] Chloride 105 97 - 110 mmol/L [facility] CO2 24 22 - 32 mmol/L [facility] Anion gap 11 2 - 15 mmol/L [facility] BUN 11 6 - 25 mg/dL [facility] Creatinine 0.66 0.60 - 1.10 mg/dL [facility] Glucose 82 70 - 199 mg/dL [facility] Comment: Interpretive Data Fasting glucose >/= 126 [...] classification and Diagnosis of Diabetes Diabetes Care 202; 46: S19-S40. Current interpretive data was last [...] CERNER BJWCH Blood 05/22/2024 10:1 8 AM CHROME PLATER HELPER 05/22/2024 10:42 AM CHROME PLATER HELPER Lisa Nieto NP LAB BLOOD ORDERABLES Fin al Result CINDY CHRISTIECH [address] [facility]. Department [place] [address] * Liver Elastography w/o Imaging W/I&R -[facility] (All Locations) (05/22/2024 9:45 AMCST) Anatomical [...] Female Attending MD: Rey Humphrey M.D. Room: [facility] ENDOSCOPY ROOM 02 Note Status: Finalized Procedure: [...] The scope was passed under direct vision.The [id number] was introduced through the anusand advanced to [...] During normal business hours - Please call [facility] Coordinator: [phone]. After hours, evening, nights, weekends and holidays- Please call the hospital cadd operator at and ask for the GI fellow conveyor belt operator. Electronically signed by Rey Humphrey MD Rey Humphrey M.D. 02/11/2024 8:46:23 AM Libra Galdamez M.D. Number of Addenda: 0 Note Initiated On: 02/11/2024 8:17 AM Rey Humphrey MD ENDOSCOPY PROCEDURES Final Resul t * Diagnostic Mammogram Bilateral W Jose (06/25/2021 8:38 AM CHROME PLATER HELPER) Anatomical Region Laterality Modality Breast Bilateral Mammography 06/25/2021 9:19 AM CHROME PLATER HELPER Impressions 06/25/2021 9:39 AM CHROME PLATER HELPER 1. The asymmetry at far posterior depth [...] Ludmila Mancini M.D. Narrative 06/25/2021 9:39 AM CHROME PLATER HELPER EXAMINATION: BILATERAL DIGITAL DIAGNOSTIC MAMMOGRAM INCLUDING CAD [...] Most Recently Relevant to Health Maintenance Insurance [facility] [email or web address] [place] [email or web address] [place] Advance Directives For more information, please contact: [phone] * Full Code (Latest Code Status on File) Date Activated Date Inactivated Comments 02/11/2024 7:20 AM 02/11/2024 1:42 PM * Full Code Date Activated Date Inactivated Comments 04/03/2022 7:46 AM 04/03/2022 2:24 PM * Full Code Date Activated Date Inactivated Comments 10/04/2020 7:56 AM 10/04/2020 2:13 PM * Full Code Date Activated Date Inactivated Comments 07/29/2018 12:32 PM 07/29/2018 6:57 PM Care Teams Cardroom Manager Relationship Specialty Start Date End Date No, Physician PCP - General 11/25/23 Tu Florence MD [address] [place] [address] [address] Referring Physician Hematology 11/25/23
--- OUTSIDE RECORDS SUMMARY | 2024-07-14 09:44 | XMS_ITS | Data Portability ---
Author Organization [facility] [employer] [facility], Evan Cadet [facility] Address [address] [place] [address] Care Team Providers Care Drafter Chief Design Name Role Phone AL MCNEIL Primary Care Provider [phone] Assessment No assessment recorded. Plan of Treatment Reminders Order Date Submit Date Provider Last Modified By Organization Details Last Modified Time Details Appointments None record ed. Lab None record ed. Referral None record ed. Procedures None record ed. Surgeries None record ed. Imaging None record ed. Medication Orders None record ed. Patient TargetsNo targets recorded. Patient Instructions Encounter Date Encounter Id Patient Instructions Last Modified By Organization Details Last Modified Time 09/11/2016 [id number] peroneal tendon strain: rehab exercises Not available 09/11/2016 12:01:23 Reason for Referral None Reported. Procedures Surgical History Date Name Laterality Status Provider Name and Address Organization Details Recorded Time 09/12/19 17 [id number] X-rays 3v Feet Normal completed [employer] [facility] 09/11/2016 11:50:23 09/12/19 17 [id number] X-rays 2v Ankle Normal completed [employer] [facility] 09/11/2016 11:50:15 09/12/19 17 [id number] Multiligamentous ankle brace completed [facility] [employer] [facility] 09/11/2016 11:50:29 Appendectomy [facility] 09/11/2016 11:15:27 Colon Surgery completed [facility] 09/11/2016 11:15:31 Other completed Bren [facility] 09/11/2016 11:15:50 Other completed [facility] 09/11/2016 11:16:12 Imaging Results None recorded. Procedure Notes None recorded. Medical Equipment None Reported. Allergies No known drug allergies Medications Name Sig Start Date Stop Date Status Note LastModified by Organization Details LastModified Time Jolivette 0.35 mg tablet TK 1 T PO QD active Not Available Not Available No t Available Humira Pen 40 mg/0.8 mL subcutaneous kit active Not Available Not Available Not Available Xarelto 20 mg tablet TK 1 T PO D WITH DINNER active Not Available Not Available No t Available WINDOW GLASS INSTALLER-PNV-DHA 28 mg iron-1 mg-200 mg capsule active Not Available Not Available Not Available Vitals Date Recorded Body height Body weight Body mass index (BMI) Provider Name and Address Organization Details Last Updated DateTime 09/11/2016 165.1 cm 53652.97 g 22.5 kg/m2 [facility] 09/11/2016 11:14:49 Social History Question Answer Notes LastModified by Organizat ion Details LastModified Time Tobacco Smoking Status Never Smoker [facility] 09/11/2016 11:15:10 What Is Your Level Of Alcohol Consumption? Occasional Information not available 09/11/2016 Size Of Shoes 8.5 Information not available 09/11/2016 Sex: Unknown Functional Status Question Answer Note LastModified by Organization D etails LastModified Time What is your exercise level? Heavy Information not available 09/11/2016 Mental Status None recorded. Family History Relationship Description Onset Age of this Age Resolved Age Notes LastModified by Organization Details LastModified Time Father No current problems or disability Not available 09/11 11:15:04 Mother No current problems or disability Not available 09/11 11:15:04 Medical History Condition Response HIV or AIDS N Coronary Artery Disease N Gout N Seizure Disorder N High Blood Pressure N Menopause N Lung Condition N Depression N Pacemaker N Sciatica N Anxiety Disorder N Urinary Tract Infections N Arthritis N Ear Problems N Cancer N Eye Problems N Stroke N Stomach Problems Y High Cholesterol N Liver Disease N Rheumatoid Arthritis N Rash N Kidney Disease N Tuberculosis or TB N Heart Problems N Ulcers on Legs or Feet N Clot in Lung or Pulmonary Embolism N Phlebitis or Venous Blood Clot Y Migraines N Anemia Y Back Pain N Neurologic Disease N Heart Attack (MA) N Diabetes N Bleeding Disorder Y Abuse of Alcohol or Drugs N Back injury N Dementia N Peripheral Vascular Disease N Sinus Conditions N Broken Bone N Thyroid Disorder N Hepatitis N Heart Disease N Osteoporosis N Gynecological HistoryNo gynecological history recorded. Obstetrics History GPAL:G 0 P 0 0 0 0 Past Encounters Encounter ID Performer Location Encounter Start Date Encounter Closed Date Diagnosis/Indication Diagnosis SNOMED-CT Code Diagnosis ICD10 Code Diagnosis Note [id number] Nguyen PAULAZIZA [address] [place] [address] 09/11/2016 10:52:16 09/11/2016 11:33:18 Peroneal tendinitis [id number] M76.72 left Patient was seen and evaluated as a new patient. Radiograph s were reviewed and discussed with the patient. Etiology of peroneal tendinitis was discussed with the patient. Recommende d Ankle brace with tennis shoe for 2 weeks. Patient is to ice indirectly 20 minutes on 20 minutes off at least 3 times a day. All questions answered. Patient to call the office should they have increased pain. Patient to RTC in 2 weeks Pain in left foot [id number] M79.672 Health Concerns Section Related Observation LastModified by Organization Detai ls LastModified Time None Recorded Concern Status LastModified by Organization Details LastModified Time None Recorded Advance Directives Directive None Recorded Payers Encounter Date Sequence Insurance Name Policy Number Policy Cordero Covered Member ID Cordero Member ID Guarantor Name 09/11/2016 1 [facility] [id number] Kelsey Ramos [id number] Kelsey Ramos Notes Date Note Type Note Provider Name and Address Organization Details Recorded Time 09/11/2016 text/html Foot Pain--Repor bennie bypatient.Location: left midfoot at the lateral side; left lateral ankle Quality:aching; occurs: constantly Duration:1 weeks Timing:daytime when active walking Context:cannot identify; patient stated that she does not remember having any injury but has been working out a lot Alleviating Factors:rest; elevation Aggravating Factors:walking; weightbearing Associated Symptoms:denies weakness, limping, tingling, swelling, or color changes;swelling; patient stated that she has clot issues Previous Surgery:none Prior Imaging:none Previous Treatments:none Nguyen jon [facility] 09/11/2016 11:54:14 OBGyn Episode No OBEpisode recorded.
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
--- OUTSIDE RECORDS SUMMARY | 2024-07-14 09:45 | XMS_ITS | Clinical Summary ---
Author Organization [facility] Shortlist Address [address] [facility] [place] [address] Care Team Providers Care Medical Office Rep Name Role Phone Unavailable Primary Care Provider Unavailabl e Source Comments [facility] Shortlist,non-owned Affiliates and Associated Physician Practices is amultiple site organization consisting of ambulatory clinics and hospital sitesin [place], [place], [place] and [place]. This disclosure is being madepursuant to the Care Everywhere program and may not contain all information available regarding this patient. Last updated 18.[facility] Shortlist Allergies No known active allergies Medications * Be aware that medications may not be up to date on this document. Alwaysverify current medications with the patient. Medication Sig Dispensed Refills Start Date End Date Status WARFARIN SODIUM POIndications:10 mg and 9 mg rotating daily Take 10 mg by mouth Reasons: 10 mg and 9 mg rotating daily Active adalimumab (HUMIRA) 40 MG/0.8ML injection Inject 40 mg subcutaneously every 14 days Active aspirin (ASPIRIN) 81 MG tablet Take 81 mg by mouth once daily Active norethindrone (LUIS-BE) 0.35 MG tablet Take 1 Tab by mouth once daily Active Vit-Fe Fumarate-FA ( VITAMIN) 27-0.8 MG tablet Take 1 Tab by mouth once daily Active methylPREDNISolone (MEDROL DOSEPAK) 4 MG tabletIndications:Yisel t pain, left,Tendonitis of foot Take by mouth as directed 21 Packet 0 5 Active Additional Information Patient not taking.Reported on 11/19/2016 albuterol HFA (PROAIR HFA) 108 (90 BASE) MCG/ACT inhaler Inhale 2 Puffs by mouth every 4 hours as needed for Shortness of Breath, Wheezing or Cough 1 Inhaler 7 Active Additional Information Patient not taking.Reported on 01/27/2018 Spacer/Aero-Holding Chambers (AEROCHAMBER) Inhale by mouth as directed 1 Each 7 Active Additional Information Patient not taking.Reported on 01/27/2018 benzonatate (TESSALON) 200 MG capsule Take 1 Cap by mouth 3 times daily as needed for Cough 20 Cap 7 Active Additional Information Patient not taking.Reported on 01/27/2018 XARELTO 20 MG tabletIndications:Fac tor V Leiden mutation (HCC),Heterozygous MTHFR mutation [id number],Hx of deep vein thrombophlebitis of lower extremity,Coagulation disorder (HCC) TAKE 1 TABLET BY MOUTH DAILY WITH DINNER 30 tablet 11 8 Active benzonatate (TESSALON) 200 MG capsule Take 1 capsule by mouth 3 times daily as needed for Cough 30 capsule 8 Active Active Problems Problem Noted Date Diagnosed Date Factor V Leiden mutation 11/19/2016 Overview (11/19/2016): Overview: heterozygous Heterozygous MTHFR mutation C677T 11/19/2016 Hx of deep vein thrombophlebitis of lower extrem ity 11/19/2016 Overview (11/19/2016): Overview: recurren Iron deficiency anemia 11/19/2016 Ulcerative colitis 11/19/2016 Coagulation disorder 06/19/2012 Social History Tobacco Use Types Packs/Day Years Used Date Smoking Tobacco: Never Smokeless Tobacco: Never Alcohol Use Standard Drinks/Week Comments Yes 0 (1 standard drink = 0.6 oz pur e alcohol) rare Sex and Gender Information Value Date Recorded Sex Assigned at Not on file Gender Identity Not on file Sexual Orientation Not on file Last Filed Vital Signs Vital Sign Reading Time Taken Comments Blood Pressure 114/80 01/27/2018 4:49 PM CDT Pulse 69 01/27/2018 4:49 PM CDT Temperature 36.8 C (98.3 F) 01/27/2018 4:49 PM CDT Respiratory Rate 16 01/27/2018 4:49 PM CDT Oxygen Saturation 100% 01/27/2018 4:49 PM CDT Inhaled Oxygen Concentration - - Weight 58.1 kg (128 lb) 01/27/2018 4:49 PM CDT Height 165.1 cm (5' 5 ) 01/27/2018 4:49 PM CDT Body Mass Index 21.3 01/27/2018 4:49 PM CDT Plan of Treatment Health Maintenance Due Date Last Done Comments COLOGUARD (AGES 45-75) - COL ON CA SCREENING 1979 COLON MONITORING 1979 COLONOSCOPY - COLON CA SCREENING 1979 CT COLONOGRAPHY - COLON CA SCREENING 1979 Colorectal Cancer Screening 1979 FIT - COLON CA SCREENING 1979 FLEX SIG - COLON CA SCREENING 1979 LIPID TESTING 1979 MAMMOGRAM 1979 HIB VACCINE (1 of 1 - Risk 1-dose series) 05/26/1980 MENINGOCOCCAL GROUPS A/C/Y/W VACCINE (1 - Risk 2-dose series) 1981 MENINGOCOCCAL (Group B) VACCINE SHARED DECISION-MAKING (1 of 5 - Increased Risk) 1989 HIV SCREENING 1994 HEPATITIS C SCREENING 02/18/1997 DTAP/TDAP/TD VACCINES (1 - Tdap) 1998 HEPATITIS B VACCINE (1 of 3 - 19+ 3-dose series) 1998 PNEUMOCOCCAL VACCINE (1 of 2 - PCV) 1998 PAP SMEAR 11/15/2020 11/15/2017, 11/15/2017 COVID-19 VACCINE (1 - 2023-2 5 season) 2023 INFLUENZA VACCINE (#1) 2023 02/01/2016 DEPRESSION SCREENING 04/19/2024 ZOSTER VACCINE (1 of 2) 2029 HPV VACCINE Aged Out No longer eligi ble based on patient's age [place] [address]
--- OUTSIDE RECORDS SUMMARY | 2024-07-14 09:45 | XMS_ITS ---
Author Organization [facility] Address [address] [place] [address] Care Team Providers Care Sample Preparation Supervisor Name Role Phone Feli Ayers Unavailable [phone] ZZ-Migration, Provider Unavailable Unavailab le REASON [facility]ISIT [facility] Encounter Medications Medication SIG (Take, Route, Frequency, Duration) Notes Start Date End Date Status Xarelto 20 MG TAKE 1 TABLET BY MOUTH DAILY WITH DINNER Diagnosis Unavailable for 90 Active Norlyda 0.35 MG for 84 Acti ve Plus 27-1 MG 1 tab(s) orally once a day for 30 day(s) 02/25/2022 Active Cetirizine HCl 10 MG 1 tab(s) orally once a day 07/01/2022 Active Astepro 137 MCG 2 SPRAYS EACH NOSTRIL INTRANASAL BID for 30 DAYS *Please review and pick correct strength-formulat ion from [employer] options. If intended option is not shown, discontinue and re-order from Quick Search* 07/01/2022 Active Triamcinolone Acetonide *Please review and pick correct strength-formulat ion from [employer] options. If intended option is not shown, discontinue and re-order from Quick Search* Active hydrOXYzine HCl 25 MG 1 tab(s) orally 4 times a day takes one tablet @ hs Not-Taking Humira Pen 40 MG/0.4 ML for 28 *Please review and pick correct strength-formulat ion from [employer] options. If intended option is not shown, discontinue and re-order from Quick Search* Active Mesalamine 1.2 G NULL DIAGNOSIS UNAVAILABLE for 30 *Please review and pick correct strength-formulat ion from [employer] options. If intended option is not shown, discontinue and re-order from Quick Search* Active Famotidine 40 MG 1 tab(s) orally once a day (at bedtime) Active Doxycycline Hyclate 100 MG 1 cap(s) orally 2 times a day Active Cetirizine HCl 10 MG 1 tab(s) orally once a day PRN Active Encounters Encounter Location Date Provider Diagnosis [address] [address] 10/02/2023 Provider AMANDA-Domingo Acute nasopharyngitis [common cold] J00 Assessments Encounter Date Diagnosis (ICD Code) Assessment Notes Treatment Notes Treatment Clinical Notes Section Notes 10/02/2023 Acute nasopharyngitis [common cold] (ICD-10 - J00) Plan Of Treatment Medication Medication Name Sig Start Date Stop Date Notes Cetirizine HCl 10 MG 1 tab(s) orally onc e a day 07/01/2022 Astepro 137 MCG 2 SPRAYS EACH NOSTRI L INTRANASAL BID for 30 DAYS 07/01/2022 *Please review and pick correct strength-formulation from [employer] options. If intended option is not shown, discontinue and re-order from Quick Search* Progress Notes * Kelsey RAMOSDOB:[birth year] (44 yo F)Acc No.[id number]:10/02/2023 Patient: Kelsey JONES Provider: Maame Lane :1980 A ge:43 Y S ex:Female Date:10/02/2023 [facility] Subjective: * Chief Complaints: * [facility] . [facility] * Medical History: * Medications: T aking Doxycycline Hyclate 100 MG Capsule 1 cap(s) orally 2 times a day , Taking Cetirizine HCl 10 MG Tablet 1 tab(s) orally once a day , Notes to Pharmacist: PRN, Taking Famotidine 40 MG Tablet 1 tab(s) orally once a day (at bedtime) , Taking Triamcinolone Acetonide , Notes to Pharmacist: *Please review and pick correct strength-formulation from [employer] options. If intended option is not shown, discontinue and re-order from Quick Search*, Taking Humira Pen 40 MG/0.4 ML KIT , Notes to Pharmacist: *Please review and pick correct strength-formulation from [employer] options. If intended option is not shown, discontinue and re-order from Quick Search*, Taking Mesalamine 1.2 G DELAYED RELEASE TABLET NULL DIAGNOSIS UNAVAILABLE , Notes to Pharmacist: *Please review and pick correct strength-formulation from [employer] options. If intended option is not shown, discontinue and re-order from Quick Search*, Taking Xarelto 20 MG Tablet TAKE 1 TABLET BY MOUTH DAILY WITH DINNER Diagnosis Unavailable , Taking Norlyda 0.35 MG Tablet , Taking Plus 27-1 MG Tablet 1 tab(s) orally once a day , Not-Taking/PRN hydrOXYzine HCl 25 MG Tablet 1 tab(s) orally 4 times a day , Notes to Pharmacist: takes one tablet @ hs Objective: * Vitals: Assessment: * Assessment: 1. A cute nasopharyngitis [common cold] - J00 Plan: * Treatment: * Billing Information: * Visit Code: * Procedure Codes: * Electronic signature of Karina PATEL-Migration on 07/14/2024 at 09:27 AM CDT Sign off status: Pending * Provider: Maame morales Migration Date: 0 10/02/2023 Generated for [place] loza/Shazia/Vanda on: 0 07/14/2024 09:27 AM CDT
== END 2024-07-14 09:14 | disposition home or self-care (01) ==
LOC: ANHLAB 09:14
PROVIDERS: PCP Internal Medicine Hematology & Oncology; Visit Provider Internal Medicine Hematology & Oncology
DX: Z86.718 Personal history of other venous thrombosis and embolism (principal)
CPT/HCPCS: 36415; 80047; 85025

== ENCOUNTER 2024-12-15 15:26 | Outpatient (CLI) | payer BC, SELFPAY ==
--- NOTE | ~2024-12-15 | MM_ITS ---
EXAMINATION: MM screening [facility] BI w ruth HISTORY: Screening TECHNIQUE: Craniocaudal and mediolateral oblique 3-D tomosynthesis images were obtained and synthetic 2-D images were generated. CAD analysis was submitted and interpreted. COMPARISON: Mammograms from 09/20/2023 and 06/26/2022 BREAST PARENCHYMAL COMPOSITION: There are scattered areas of fibroglandular density. FINDINGS: There is no evidence of suspicious mass, calcification, or architectural distortion in either breast to suggest malignancy. There has been no significant interval change. IMPRESSION: 1. No mammographic evidence of malignancy. Recommend routine screening mammography in one year. BI-RADS Category 1: Negative Reviewed, dictated and finalized at location Q. IMPRESSION: 1. No mammographic evidence of malignancy. Recommend routine screening mammogra phy in one year. BI-RADS Category 1: Negative
== END 2024-12-15 15:27 | disposition home or self-care (01) ==
LOC: ANHFOHIMG 15:57
PROVIDERS: PCP Internal Medicine Hematology & Oncology; Visit Provider Internal Medicine Hematology & Oncology
DX: Z12.31 Encounter for screening mammogram for malignant neoplasm of breast (principal)
CPT/HCPCS: 77063; 77067